=== PATIENT | female | born 1950 | race Caucasian/White ===

== ENCOUNTER 2021-03-05 08:03 | Day surgery (SDC) | payer MEDICARE ==
[~2021-03-05] VITALS: Ht 167.6 cm; Wt 86.1 kg
[2021-03-05] VITALS (12 sets, daily range): BP systolic 120–157; BP diastolic 49–87
[2021-03-05] MEDS ORDERED: normal saline 1,000 ML IV SCH (08:35)
[2021-03-05] MEDS ORDERED: diphenhydrAMINE 25mg capsule PO PRN (08:35)
[2021-03-05] MEDS ORDERED: MAGN400C PO (09:01)
[2021-03-05] MEDS ORDERED: ASCO500C17 PO (09:01)
[2021-03-05] MEDS ORDERED: Amlodipine PO (09:01)
[2021-03-05] MEDS ORDERED: ATOR40TA PO (09:01)
[2021-03-05] MEDS ORDERED: RAMI10CA69 PO (09:01)
[2021-03-05] MEDS ORDERED: LIDOcaine/PRILOcaine 5gm cream TP ONE (09:10)
[2021-03-05] MEDS ORDERED: nitroGLYCERIN-Tridil 50MG/D5W 250 ML IV ONE (10:04)
[2021-03-05] MEDS ORDERED: verapamil 2.5 mg/ml inj IV ONE (10:05)
[2021-03-05 10:06] LABS: BASOPHILS % (AUTO) 0.1 % (0-1); EOSINOPHILS % (AUTO) 0 % (0-6); HEMATOCRIT 39.7 % (35.0-45.0); HEMOGLOBIN 13.7 g/dl (12.0-16.0); LYMPHOCYTES # (AUTO) 1.1 X10'3 (1.1-4.8); LYMPHOCYTES % (AUTO) 9.8 % (21-51); MEAN CORPUSCULAR HGB CONC 34.4 g/dL (33.0-36.5); MEAN PLATELET VOLUME 7.6 FL (7.4-10.4); MONOCYTES # (AUTO) 0.5 X10'3 (0-0.9); MONOCYTES % (AUTO) 4.5 % (2-12); NEUTROPHILS # (AUTO) 9.9 X10'3 (1.8-7.7); NEUTROPHILS % (AUTO) 85.6 % (42-75); PLATELET COUNT 269 X10'3 (140-440); RED BLOOD COUNT 4.41 X10'6 (4.20-5.60); RED CELL DISTRIBUTION WIDTH 13.1 % (11.5-14.5); WHITE BLOOD COUNT 11.6 X10'3 (4.5-11.0)
[2021-03-05] MEDS ORDERED: midazolam 1 mg/ML 2ml injection ONE ×3 (10:11→10:23)
[2021-03-05 10:14] LABS: ALBUMIN 4.4 G/DL (3.4-5.0); ANION GAP 13 (8-16); BLOOD UREA NITROGEN 22 MG/DL (7-18); BUN/CREATININE RATIO 28.6 (6.6-38.0); CALCIUM 9.8 MG/DL (8.5-10.1); CHLORIDE 108 MMOL/L (99-107); CREATININE 0.77 MG/DL (0.40-0.90); GLUCOSE 110 MG/DL (70-104); MAGNESIUM 2.6 MG/DL (1.5-2.4); POTASSIUM 4.2 MMOL/L (3.5-5.1); SODIUM 147 MMOL/L (135-145); TOTAL CARBON DIOXIDE 25.9 MMOL/L (24-32); eGFR 74 ML/MIN
[2021-03-05] MEDS ORDERED: fentaNYL/PF 50MCG/1 ML 2ML syringe ONE (10:15)
[2021-03-05] MEDS ORDERED: iohexol 350MG/ML 100ml bottle IV ONE (10:38)
[2021-03-05] MEDS ORDERED: clopidogrel 300mg tablet ONE (10:50)
== END 2021-03-05 17:05 | disposition home or self-care (01) ==
LOC: SSTAY O 08:03
PROVIDERS: ATTEND Internal Medicine Cardiovascular Disease
DX: R94.39 Abnormal result of other cardiovascular function study (principal); R07.9 Chest pain, unspecified; I25.10 Atherosclerotic heart disease of native coronary artery without angina pectoris; I10 Essential (primary) hypertension; E78.49 Other hyperlipidemia; K21.9 Gastro-esophageal reflux disease without esophagitis; Z79.899 Other long term (current) drug therapy; Z79.01 Long term (current) use of anticoagulants; Z79.82 Long term (current) use of aspirin; Z72.89 Other problems related to lifestyle; Z82.49 Family history of ischemic heart disease and other diseases of the circulatory system
CPT/HCPCS: 36415; 80048; 83735; 85025; 85610; 93005; 93458; 99152; 99153; C1751; C1769; C1874; C1894; C9600; J2250; J3010; Q0163; Q9967; A4620; A6258; J3490